=== PATIENT | male | born 1950 | race Caucasian/White ===

== ENCOUNTER 2019-09-20 07:13 | Day surgery (SDC) | payer MEDICARE, BC ==
[~2019-09-20 07:13] MED LIST: Lactated Ringers 1,000 ML IV SCH; Lidocaine 1% 6 ML ONE; Lidocaine 1%/Sod Bicarbonate in NS 8.4% 1 ML Syringe IDERM PRN; Propofol 200 MG/20 ML SDV ONE; Sodium Chloride 0.9% 10 ML Syringe FLUSH PRN; fentaNYL 100 MCG/2 ML SDV ONE
--- NOTE | 2019-09-20 07:49 | PCM.PREANE ---
Preanesthetic Assessment - Anesthesia/Transfusion/Family Hx Anesthesia History: Prior Anesthesia Without Reaction Family History of Anesthesia Reaction: No Transfusion History: No Prior Transfusion(s) Intubation History: Unknown - Review of Systems General: No Symptoms Pulmonary: No Symptoms (Former smoker: quit 4 years ago/ETOH: rarely) Cardiovascular: No Symptoms (Increased cholesterol, history of thoracic oulet syndrome) Gastrointestinal: No Symptoms (epigastic pain, History of GERD), Decreased Appetite Neurological: No Symptoms Other: Reports: Thyroid Problems (Hypothyroid), Sinus Problem (allergic rhinitis ), Depression, Anxiety - Physical Assessment NPO Status Date: 09/19/19 NPO Status Time: 18:00 Vital Signs: HR: 50 BP: 106/70 Resp: 16 Temp: 97.2F Sat: 98% Height: 1.78 m Weight: 79 kg ASA Class: 2 Mental Status: Alert & Oriented x3 Airway Class: Mallampati = 2 Dentition: Reports: Partial Thyro-Mental Finger Breadths: 3 Mouth Opening Finger Breadths: 3 ROM/Head Extension: Full Lungs: Clear to Auscultation, Normal Respiratory Effort Cardiovascular: Regular Rate, Regular Rhythm, No Murmurs - Lab Values: All labs reviewed and noted and within acceptable ranges to proceed with scheduled procedure. - Allergies Allergies/Adverse Reactions: Allergies Allergy/AdvReac Type Severity Reaction Status Date / Time No Known Allergies Allergy Verified 09/19/19 13:28 - Anesthesia Plan Pre-Op Medication Ordered: None - Acknowledgements Anesthesia Type Planned: MAC Pt an Appropriate Candidate for the Planned Anesthesia: Yes Alternatives and Risks of Anesthesia Discussed w Pt/Guardian: Yes Pt/Guardian Understands and Agrees with Anesthesia Plan: Yes PreAnesthesia Questionnaire HEENT History: Reports: Allergic Rhinitis, Other (See Below) Other HEENT History: HAS PARTIAL Cardiovascular History: Reports: High Cholesterol Respiratory History: Reports: None Gastrointestinal History: Reports: Other (See Below) 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 Musculoskeletal History: Reports: Arthritis Neurological History: Reports: Other (See Below) Other Neuro History: SEA SICKNESS Psychiatric History: Reports: Depression, PTSD Endocrine/Metabolic History: Reports: Hypothyroidism Hematologic History: Reports: Bleeding Disorder, Other (See Below) Other Hematologic History: THORACIC OUTLET SYNDROME, TAKES ASPIRIN 81MG DAILY Immunologic History: Reports: None Oncologic (Cancer) History: Reports: Prostate Dermatologic History: Reports: Other (See Below) Other Dermatologic History: DERMATITIS - Past Surgical History Head Surgeries/Procedures: Reports: None HEENT Surgical History: Reports: Tonsillectomy Cardiovascular Surgical History: Reports: None Respiratory Surgical History: Reports: None GI Surgical History: Reports: Appendectomy, Cholecystectomy Male Surgical History: Reports: TURP-Transurethral Resection of Prostate Endocrine Surgical History: Reports: None Neurological Surgical History: Reports: None Musculoskeletal Surgical History: Reports: None Oncologic Surgical History: Reports: None Dermatological Surgical History: Reports: None - SUBSTANCE USE Smoking Status *Q: Former Smoker Recreational Drug Use History: No - HOME MEDS Home Medications: Home Meds Ascorbic Acid [Vitamin C] 1,000 mg PO TID 09/19/19 [History] Aspirin [Low Dose Aspirin EC] 81 mg PO DAILY 09/19/19 [History] Cetirizine [ZyrTEC] 10 mg PO DAILY 09/19/19 [History] Clotrimazole/Betamethasone Dip [Lotrisone Cream] 1 dose TOP TID 09/19/19 [ History] FLUoxetine HCl [Prozac] 20 mg PO BID 09/19/19 [History] Fish Oil/[place]-3 Fatty Acids [Fish Oil 1,000 MG] 1 gm PO TID 09/19/19 [History] Levothyroxine [Synthroid] 50 mcg PO DAILY 09/19/19 [History] Multivitamin [Daily Multiple Vitamin] 1 tab PO DAILY 09/19/19 [History] Naproxen Sodium [Aleve] 220 mg PO DAILY PRN 09/19/19 [History] OLANZapine [Olanzapine] 5 mg PO BEDTIME 09/19/19 [History] Ranitidine [Zantac] 150 mg PO DAILY 09/19/19 [History] Rosuvastatin Calcium 10 mg PO DAILY 09/19/19 [History] Triamcinolone Acetonide [Nasacort AQ [place]] 1 dose NASBOTH DAILY PRN 09/19/19 [ History] - CURRENT (IN HOUSE) MEDS Current Meds: Current Medications Discontinued Medications Fentanyl (Sublimaze) Confirm Administered Dose 100 mcg .ROUTE .STK-MED ONE Stop: 09/20/19 07:03 Lidocaine HCl (Xylocaine-Mpf 1%) Confirm Administered Dose 6 mls @ as directed .ROUTE .STK-MED ONE Stop: 09/20/19 07:02 Propofol (Diprivan 20 Ml) Confirm Administered Dose 200 mg .ROUTE .[facility] ONE Stop: 09/20/19 07:02
[2019-09-20] MEDS ORDERED: Glycopyrrolate 0.2 MG/ML SDV ONE (08:42)
--- NOTE | 2019-09-20 09:01 | PCM48HPAN ---
Post Anesthesia Note - EVALUATION WITHIN 48HRS OF ANESTHETIC Vital Signs in Normal Range: Yes Patient Participated in Evaluation: Yes Respiratory Function Stable: Yes Airway Patent: Yes Cardiovascular Function Stable: Yes Hydration Status Stable: Yes Pain Control Satisfactory: Yes Nausea and Vomiting Control Satisfactory: Yes Mental Status Recovered: Yes Vital Signs: Last Vital Signs Temp 36.2 C 09/20/19 07:40 Pulse 51 L 09/20/19 08:30 Resp 16 09/20/19 08:30 BP 128/68 09/20/19 08:30 Pulse Ox 100 09/20/19 08:30
--- NOTE | 2019-09-20 09:24 | PCM.PRNOTE ---
- Free Text/Narrative Note: Date: 09/20/2019 Procedure: diagnostic esophagogastroduodenoscopy Endoscopist: Dc Salazar MD Findings: normal appearance of duodenum. Mild diffuse erythema of the antrum without ulceration or mass; biopsy obtained. The body of the stomach proximal to the incisura appeared grossly abnormal with trabeculated appearance, with several pocketed areas. Biopsy obtained. The mucosa appeared intact without ulceration. No discrete mass identified. Detailed report: The patient was placed in left lateral decubitus position and uunderwent MAC anesthesia. Once adequate sedation was achieved, timeout was performed and a bite block was placed. The endoscope was advanced through the mouth all the way to the second portion of the duodenum easily. No duodenal abnormality noted. Mild duodenal mucosal trauma from the scope was noted on withdrawal. The pylorus appeared normal. The antrum showed mild diffuse erythema and was biopsied. Proximal to the incisura, the stomach had a grossly abnormal appearance with what appeared to be an extensive network of healed ulcers and trabeculated cicatrix. A biopsy was obtained. No significant hiatal hernia noted , the cardia appeared normal. The esophagus was noted to have one area of benign isolated island of gastric mucosa and was otherwise normal without evidence of inflammation or Morfin esophagus. The scope was withdrawn completely. The patient tolerated the procedure well, no complications. Dc Salazar MD General Surgery
== END 2019-09-20 09:30 | disposition home or self-care (01) ==
LOC: JD.SDS 07:13
PROVIDERS: ATTEND Surgery
DX: K29.50 Unspecified chronic gastritis without bleeding (principal); M19.90 Unspecified osteoarthritis, unspecified site; E78.00 Pure hypercholesterolemia, unspecified; E03.9 Hypothyroidism, unspecified; J30.2 Other seasonal allergic rhinitis; F17.210 Nicotine dependence, cigarettes, uncomplicated; F32.9 Major depressive disorder, single episode, unspecified; Z79.82 Long term (current) use of aspirin; Z79.899 Other long term (current) drug therapy
CPT/HCPCS: 00731; J2001; J2704; J3010; J3490; J7120

== ENCOUNTER 2021-02-14 10:32 | Day surgery (SDC) | payer MEDICARE, BC ==
[~2021-02-14 10:32] MED LIST changes: -Lidocaine 1% 6 ML ONE; -Propofol 200 MG/20 ML SDV ONE; -fentaNYL 100 MCG/2 ML SDV ONE
[2021-02-14] MEDS ORDERED: Lidocaine 1% 4 ML ONE (11:28)
[2021-02-14] MEDS ORDERED: Propofol 200 MG/20 ML SDV ONE (11:28)
--- NOTE | 2021-02-14 12:05 | PCM.PREANE ---
Preanesthetic Assessment - Procedure Proposed Procedure: EGD - Anesthesia/Transfusion/Family Hx Anesthesia History: Prior Anesthesia Without Reaction Transfusion History: No Prior Transfusion(s) Intubation History: Unknown - Review of Systems General: No Symptoms Pulmonary: No Symptoms Cardiovascular: No Symptoms Gastrointestinal: No Symptoms Neurological: No Symptoms Other: Reports: None - Physical Assessment NPO Status Date: 02/13/21 NPO Status Time: 18:00 Vital Signs: 124/67 52 98% ASA Class: 2 Mental Status: Alert & Oriented x3 Airway Class: Mallampati = 2 Dentition: Reports: [place](s), Broken Tooth/Teeth, Missing Tooth/Teeth Thyro-Mental Finger Breadths: 3 Mouth Opening Finger Breadths: 3 ROM/Head Extension: Full Lungs: Clear to Auscultation, Normal Respiratory Effort Cardiovascular: Regular Rate, Regular Rhythm - Allergies Allergies/Adverse Reactions: Allergies Allergy/AdvReac Type Severity Reaction Status Date / Time No Known Allergies Allergy Verified 02/14/21 12:22 - Acknowledgements Anesthesia Type Planned: MAC Pt an Appropriate Candidate for the Planned Anesthesia: Yes Alternatives and Risks of Anesthesia Discussed w Pt/Guardian: Yes Pt/Guardian Understands and Agrees with Anesthesia Plan: Yes PreAnesthesia Questionnaire HEENT History: Reports: Allergic Rhinitis, Other (See Below) Other HEENT History: HAS PARTIAL Cardiovascular History: Reports: High Cholesterol Respiratory History: Reports: None Gastrointestinal History: Reports: GERD, Helicobacter Pylori, PUD, Other (See Below) Other Gastrointestinal History: EPIGASTRIC PAIN, hepatitis B Genitourinary History: Reports: 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 Musculoskeletal History: Reports: Arthritis Neurological History: Reports: Other (See Below) Other Neuro History: thoracic outlet syndrome, seasickness Psychiatric History: Reports: Depression, PTSD, Other (See Below) Other Psychiatric History: nightmares Endocrine/Metabolic History: Reports: Hypothyroidism Hematologic History: Reports: Bleeding Disorder, Other (See Below) Other Hematologic History: thoracic outlet syndrome, bleeding disorder, blood clotting disorder Immunologic History: Reports: None Oncologic (Cancer) History: Reports: Prostate Dermatologic History: Reports: Other (See Below) Other Dermatologic History: alopecia areata, dermatitis - Infectious Disease History Infectious Disease History: Reports: None - Past Surgical History Head Surgeries/Procedures: Reports: None HEENT Surgical History: Reports: Tonsillectomy Cardiovascular Surgical History: Reports: None Respiratory Surgical History: Reports: None GI Surgical History: Reports: Appendectomy, Cholecystectomy Male Surgical History: Reports: Prostate Biopsy, TURP-Transurethral Resection of Prostate Endocrine Surgical History: Reports: None Neurological Surgical History: Reports: None Musculoskeletal Surgical History: Reports: None Oncologic Surgical History: Reports: None Dermatological Surgical History: Reports: None - SUBSTANCE USE Tobacco Use Status *Q: Former Tobacco User Recreational Drug Use History: No - HOME MEDS Home Medications: Home Meds Ascorbic Acid [Vitamin C] 1,000 mg PO TID 09/19/19 [History] Aspirin [Low Dose Aspirin EC] 81 mg PO DAILY 09/19/19 [History] Cetirizine [ZyrTEC] 10 mg PO DAILY 09/19/19 [History] FLUoxetine HCl [Prozac] 20 mg PO BID 09/19/19 [History] Fish Oil/[place]-3 Fatty Acids [Fish Oil 1,000 MG] 1 gm PO TID 09/19/19 [History] Levothyroxine [Synthroid] 50 mcg PO DAILY 09/19/19 [History] Multivitamin [Daily Multiple Vitamin] 1 tab PO DAILY 09/19/19 [History] OLANZapine [Olanzapine] 5 mg PO BEDTIME 09/19/19 [History] Rosuvastatin Calcium 10 mg PO DAILY 09/19/19 [History] Triamcinolone Acetonide [Nasacort AQ [place]] 1 dose NASBOTH DAILY PRN 09/19/19 [History] Omeprazole Magnesium [Prilosec Otc] 20 mg PO DAILY 02/13/21 [History] - CURRENT (IN HOUSE) MEDS Current Meds: Current Medications Lactated Ringer's (Ringers, Lactated) 1,000 mls @ 125 mls/hr IV ASDIRECTED FLO Stop: 02/14/21 23:00 Lidocaine/Sodium Bicarbonate (Lidocaine 1%/Sod Bicarbonate In Ns 8.4% 1 Ml Syringe) 0.25 ml IDERM ONETIME PRN PRN Reason: Prior to IV Start Stop: 02/14/21 18:00 Sodium Chloride (Sodium Chloride 0.9% 10 Ml Syringe) 10 ml FLUSH ASDIRECTED PRN PRN Reason: Keep Vein Open Stop: 02/14/21 18:00 Discontinued Medications Lidocaine HCl (Xylocaine-Mpf 1%) Confirm Administered Dose 4 mls @ as directed .ROUTE .STK-MED ONE Stop: 02/14/21 11:29 Propofol (Propofol 200 Mg/20 Ml Sdv) Confirm Administered Dose 400 mg .ROUTE .STK-MED ONE Stop: 02/14/21 11:29
--- NOTE | 2021-02-14 12:27 | PCM.PRNOTE ---
- Free Text/Narrative Note: Date: 02/14/2021 Procedure: diagnostic esophagogastroduodenoscopy Endoscopist: Dc Salazar MD History: epigastric pain, with findings of severe gastropathy and H pylori one year ago. He initial improved but now has recurrent pain despite regular PPI use Findings: gastritis with abnormal appearing mucosa, though better than on previous scope. Small hiatal hernia. Detailed Report: The patient was taken to the endoscopy suite and placed in left lateral decubitus position. A bite-block was placed, monitored anesthesia care was initiated and timeout was performed. The endoscope was inserted into the mouth and advanced to the duodenum with ease. Duodenal mucosa appeared normal with gregg yellow bile contents. The stomach appeared abnormal, although in my opinion appeared better than it did 1 year ago. The area was not mag type pattern appearance to the antral mucosa. A biopsy was obtained with cold forceps. In the proximal half of the stomach, there was the same abnormal trabeculated appearance to the mucosa with what appeared like cratering or healed ulceration. Interspersed with this tissue was polypoid glandular tissue that appeared most consistent with fundic gland hyperplasia. Several biopsies were obtained with cold forceps of this abnormal appearing tissue. On retrofl exion of the scope, there was a small sliding hiatal hernia with minor inflammatory change of the gastric side of the GE junction. Withdrawal of the scope into the distal esophagus revealed no evidence of gross metaplasia or esophagitis. A sample biopsy of distal esophagus was obtained with cold forceps. Air was suctioned from the stomach prior to withdrawal of the scope. The esophagus appeared normal in caliber, and a small gastric inlet patch was identified in the midportion of the esophagus. The vocal cords were visualized and appeared normal. The patient tolerated the procedure well.
--- NOTE | 2021-02-14 12:27 | PCM48HPAN ---
Post Anesthesia Note - EVALUATION WITHIN 48HRS OF ANESTHETIC Vital Signs in Normal Range: Yes Patient Participated in Evaluation: Yes Respiratory Function Stable: Yes Airway Patent: Yes Cardiovascular Function Stable: Yes Hydration Status Stable: Yes Pain Control Satisfactory: Yes Nausea and Vomiting Control Satisfactory: Yes Mental Status Recovered: Yes Vital Signs: Last Vital Signs Temp 97.0 F 02/14/21 10:45 Pulse 52 L 02/14/21 10:45 Resp 16 02/14/21 10:45 BP 124/67 02/14/21 10:45 Pulse Ox 99 02/14/21 10:45 1219 124/78 97% 48 14 97.2
[2021-02-14] MEDS ORDERED: Iopamidol 612 MG/ML 100 ML Bottle IVPUSH ONE (13:08)
[2021-02-14] MEDS ORDERED: Diatrizoate Meglumine/Diatrizoate Sodium 37% 120 ML Bottle PO ONE (13:08)
[2021-02-14] MEDS ORDERED: Sodium Chloride 0.9% 10 ML Syringe FLUSH PRN (13:08)
--- NOTE | 2021-02-15 08:39 | CT ---
CT abdomen Technique: Multiple axial sections were obtained from above the dome of the diaphragm inferiorly to slightly below the top of the iliac crest. Intravenous and oral contrast was utilized. Reconstructed coronal and sagittal images were also obtained. Comparison: No prior CT abdomen pelvis is available, previous plain film abdominal study of 04/21/13 is available. Findings: Visualized lung bases show nothing acute. Slight pectus excavatum deformity is partially seen. No contrast is seen within the distal esophagus. No hiatal hernia is seen. Small low density finding is noted within the left lobe of the liver which on the coronal image measures 1.1 cm. Liver shows no other focal abnormality. Spleen appears at the upper limits of normal. Kidneys show symmetric contrast enhancement. Small cyst is noted within the upper left kidney measuring approximately 8 mm. Cyst is noted within the right kidney measuring about 9 mm. No additional abnormality is appreciated within the kidneys. No ureteral dilatation is appreciated. Pancreas shows no discrete abnormality. Gallbladder contains no calcified gallstones. Abdominal aorta shows atherosclerotic change without aneurysm. No mesenteric abnormalities are seen. There is bowel wall thickening seen within the visualized terminal ileum which exits into the cecum. Bone window settings were reviewed which show diffuse degenerative change within the spine. Impression: 1. Bowel wall thickening within the terminal ileum which exits into the cecum. This could represent Crohn's disease as well as other forms of enteritis. 2. Small low density finding within the left lobe of the liver measuring 1.1 cm which appears solid. Liver is otherwise unremarkable. Given that this is the only abnormality within the liver this is most likely incidental. 3. Other nonacute findings as noted above. Diagnostic code #3
== END 2021-02-14 13:00 | disposition home or self-care (01) ==
LOC: JD.SDS 10:32
PROVIDERS: ATTEND Surgery
DX: K29.50 Unspecified chronic gastritis without bleeding (principal); K31.89 Other diseases of stomach and duodenum; K44.9 Diaphragmatic hernia without obstruction or gangrene; K21.9 Gastro-esophageal reflux disease without esophagitis; E78.00 Pure hypercholesterolemia, unspecified; E03.9 Hypothyroidism, unspecified; E78.5 Hyperlipidemia, unspecified; Z85.46 Personal history of malignant neoplasm of prostate; Z79.82 Long term (current) use of aspirin; Z79.890 Hormone replacement therapy; Z79.899 Other long term (current) drug therapy; Z87.11 Personal history of peptic ulcer disease; Z98.890 Other specified postprocedural states
CPT/HCPCS: 43239; 74160; J2704; J7120; Q9967; 00731; 88305; 88342; 99100

== ENCOUNTER → 2021-03-05 | Day surgery (SDC) | payer MEDICARE, BC ==
[~2021-03-05] MED LIST changes: +Glycopyrrolate 0.2 MG/ML SDV ONE; +Propofol 200 MG/20 ML SDV ONE
--- NOTE | 2021-03-05 07:13 | PCM.PREANE ---
Preanesthetic Assessment - Anesthesia/Transfusion/Family Hx Anesthesia History: Prior Anesthesia Without Reaction Family History of Anesthesia Reaction: No Transfusion History: No Prior Transfusion(s) Intubation History: Unknown - Review of Systems General: No Symptoms Pulmonary: No Symptoms Cardiovascular: No Symptoms Gastrointestinal: No Symptoms, Abdominal Pain, Other (hx of peptic ulcer disease, GERD) Neurological: No Symptoms Other: Reports: None, Depression - Physical Assessment NPO Status Date: 03/05/21 NPO Status Time: 02:30 Weight: 75.3 kg ASA Class: 2 Mental Status: Alert & Oriented x3 Airway Class: Mallampati = 2 Dentition: Reports: Normal Dentition Thyro-Mental Finger Breadths: 3 Mouth Opening Finger Breadths: 3 ROM/Head Extension: Full Lungs: Clear to Auscultation, Normal Respiratory Effort Cardiovascular: Regular Rate, Regular Rhythm - Allergies Allergies/Adverse Reactions: Allergies Allergy/AdvReac Type Severity Reaction Status Date / Time No Known Allergies Allergy Verified 03/04/21 16:26 - Blood Blood Available: No Product(s) Available: None - Anesthesia Plan Pre-Op Medication Ordered: None - Acknowledgements Anesthesia Type Planned: MAC Pt an Appropriate Candidate for the Planned Anesthesia: Yes Alternatives and Risks of Anesthesia Discussed w Pt/Guardian: Yes Pt/Guardian Understands and Agrees with Anesthesia Plan: Yes PreAnesthesia Questionnaire HEENT History: Reports: Allergic Rhinitis, Other (See Below) Other HEENT History: HAS PARTIAL Cardiovascular History: Reports: High Cholesterol Respiratory History: Reports: None Gastrointestinal History: Reports: GERD, Helicobacter Pylori, PUD, Other (See Below) Other Gastrointestinal History: EPIGASTRIC PAIN, hepatitis B Genitourinary History: Reports: Renal Calculus [employer]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 Musculoskeletal History: Reports: Arthritis Neurological History: Reports: Other (See Below) Other Neuro History: thoracic outlet syndrome, seasickness Psychiatric History: Reports: Depression, PTSD, Other (See Below) Other Psychiatric History: nightmares Endocrine/Metabolic History: Reports: Hypothyroidism Hematologic History: Reports: Bleeding Disorder, Other (See Below) Other Hematologic History: thoracic outlet syndrome, bleeding disorder, blood clotting disorder Immunologic History: Reports: None Oncologic (Cancer) History: Reports: Prostate Dermatologic History: Reports: Other (See Below) Other Dermatologic History: alopecia areata, dermatitis - Infectious Disease History Infectious Disease History: Reports: None - Past Surgical History Head Surgeries/Procedures: Reports: None HEENT Surgical History: Reports: Tonsillectomy Cardiovascular Surgical History: Reports: None Respiratory Surgical History: Reports: None GI Surgical History: Reports: Appendectomy, Cholecystectomy Male Surgical History: Reports: Prostate Biopsy, TURP-Transurethral Resection of Prostate Endocrine Surgical History: Reports: None Neurological Surgical History: Reports: None Musculoskeletal Surgical History: Reports: None Oncologic Surgical History: Reports: None Dermatological Surgical History: Reports: None - SUBSTANCE USE Tobacco Use Status *Q: Current Every Day Tobacco User Recreational Drug Use History: No - HOME MEDS Home Medications: Home Meds Ascorbic Acid [Vitamin C] 1,000 mg PO TID 09/19/19 [History] Aspirin [Low Dose Aspirin EC] 81 mg PO DAILY 09/19/19 [History] Cetirizine [ZyrTEC] 10 mg PO DAILY 09/19/19 [History] FLUoxetine HCl [Prozac] 20 mg PO BID 09/19/19 [History] Fish Oil/[place]-3 Fatty Acids [Fish Oil 1,000 MG] 1 gm PO TID 09/19/19 [History] Levothyroxine [Synthroid] 50 mcg PO DAILY 09/19/19 [History] Multivitamin [Daily Multiple Vitamin] 1 tab PO DAILY 09/19/19 [History] OLANZapine [Olanzapine] 5 mg PO BEDTIME 09/19/19 [History] Rosuvastatin Calcium 10 mg PO DAILY 09/19/19 [History] Triamcinolone Acetonide [Nasacort AQ [place]] 1 dose NASBOTH DAILY PRN 09/19/19 [History] Omeprazole Magnesium [Prilosec Otc] 20 mg PO DAILY 02/13/21 [History] - CURRENT (IN HOUSE) MEDS Current Meds: Current Medications Lactated Ringer's (Ringers, Lactated) 1,000 mls @ 125 mls/hr IV ASDIRECTED FLO Stop: 03/05/21 23:00 Lidocaine/Sodium Bicarbonate (Lidocaine 1%/Sod Bicarbonate In Ns 8.4% 1 Ml Syringe) 0.25 ml IDERM ONETIME PRN PRN Reason: Prior to IV Start Stop: 03/05/21 18:00 Sodium Chloride (Sodium Chloride 0.9% 10 Ml Syringe) 10 ml FLUSH ASDIRECTED PRN PRN Reason: Keep Vein Open Stop: 03/05/21 18:00
--- NOTE | 2021-03-05 08:26 | PCM48HPAN ---
Post Anesthesia Note - EVALUATION WITHIN 48HRS OF ANESTHETIC Vital Signs in Normal Range: Yes Patient Participated in Evaluation: Yes Respiratory Function Stable: Yes Airway Patent: Yes Cardiovascular Function Stable: Yes Hydration Status Stable: Yes Pain Control Satisfactory: Yes Nausea and Vomiting Control Satisfactory: Yes Mental Status Recovered: Yes Vital Signs: Last Vital Signs Temp 36.4 C 03/05/21 07:10 Pulse 60 03/05/21 07:10 Resp 16 03/05/21 07:10 BP 125/77 03/05/21 07:10 Pulse Ox 96 03/05/21 07:10
--- NOTE | 2021-03-05 08:29 | PCM.PRNOTE ---
- Free Text/Narrative Note: Date: 03/05/2021 Procedure: diagnostic colonoscopy History: chronic abdominal pain with recent finding of terminal ileitis on CT and elevated CRP Endoscopist: Dc Salazar MD Findings: small cecal polyp. Terminal ileum intubated with inflamed mucosa noted. Detailed Report: The patient was taken to the endoscopy suite and placed in left lateral decubitus position. Timeout was performed and monitored anesthesia care was initiated. Visual inspection of the anus revealed no gross abnormality. Digital rectal exam was significant for boggy prostate but was otherwise unremarkable. The colonoscope was inserted and advanced all the way to the cecum. The appendiceal orifice was visualized. The terminal ileum was intubated. The mucosa of the terminal ileum was acutely inflamed. A few biopsies were obtained with cold forceps for diagnostics. A small sessile polyp was noted near the appendiceal orifice which was removed in piecemeal fashion using cold forceps. The scope was slowly withdrawn and mucosal surfaces were inspected. The prep was fair. No large or worrisome lesions were noted on withdrawal of the scope, although less time was spent than usual looking for small polyps given that the patient had a screening colonoscopy just a few years ago. Air was suctioned from the rectum prior to withdrawal of the scope. The patient tolerated the procedure well.
== END | disposition home or self-care (01) ==
LOC: JD.SDS 06:44
PROVIDERS: ATTEND Surgery
DX: D12.0 Benign neoplasm of cecum (principal); K50.00 Crohn's disease of small intestine without complications; K21.9 Gastro-esophageal reflux disease without esophagitis; E78.00 Pure hypercholesterolemia, unspecified; E78.5 Hyperlipidemia, unspecified; E03.9 Hypothyroidism, unspecified; F17.210 Nicotine dependence, cigarettes, uncomplicated; Z85.46 Personal history of malignant neoplasm of prostate; Z87.11 Personal history of peptic ulcer disease; Z79.82 Long term (current) use of aspirin; Z79.890 Hormone replacement therapy; Z79.899 Other long term (current) drug therapy
CPT/HCPCS: 45380; J2704; J3490; J7120; 00811

== ENCOUNTER 2021-03-06 16:51 | Inpatient (IN) | payer MEDICARE, BC ==
[2021-03-06] MEDS ORDERED: HYDROmorphone 1 MG/ML Syringe IVPUSH STA (17:10)
[2021-03-06] MEDS ORDERED: Ondansetron 4 MG/2 ML SDV IVPUSH ONE (17:10)
[2021-03-06] MEDS ORDERED: Sodium Chloride 0.9% 1,000 ML IV SCH (17:15)
--- NOTE | 2021-03-06 17:28 | EDM.PDOC ---
ED HPI GENERAL MEDICAL PROBLEM - General Chief Complaint: Abdominal Pain Stated Complaint: PAIN AFTER COLONOSCOPY YESTERDAY Time Seen by Provider: 03/06/21 17:04 Source of Information: Reports: Patient, Family (), RN Notes Reviewed History Limitations: Reports: No Limitations - History of Present Illness INITIAL COMMENTS - FREE TEXT/NARRATIVE: Patient is a 70-year-old male who presents to the ED for evaluation of abdominal pain status post colonoscopy done by Dr. Salazar yesterday. He did have biopsies taken as well. He was told by Dr. Salazar if he developed any sort of abdomen pain, he was to present to the ER, and then he would like to be notified. Patient notes that he had pain that started developing this morning, he points to his bellybutton at the source of the pain. He did not take anything for the pain management. Notes that the pain does not seem to really radiate anywhere. He notes that the pain just gets worse, then he is better at time. He states there are no specific aggravating or alleviating factors. He has had no fever, but notes that he had some chills, he has had nausea but no vomiting, he has had no diarrhea, he does not think he has had any flatulence, or bowel movement. Did not further denies any cough or shortness of breath. Middle Abdomen Pain Score (Numeric/FACES): 8 - Related Data Allergies Allergy/AdvReac Type Severity Reaction Status Date / Time No Known Allergies Allergy Verified 03/06/21 17:08 Home Meds: Home Meds Ascorbic Acid [Vitamin C] 1,000 mg PO TID 09/19/19 [History] Aspirin [Low Dose Aspirin EC] 81 mg PO DAILY 09/19/19 [History] Cetirizine [ZyrTEC] 10 mg PO DAILY 09/19/19 [History] FLUoxetine HCl [Prozac] 20 mg PO BID 09/19/19 [History] Fish Oil/[place]-3 Fatty Acids [Fish Oil 1,000 MG] 1 gm PO TID 09/19/19 [History] Levothyroxine [Synthroid] 50 mcg PO DAILY 09/19/19 [History] Multivitamin [Daily Multiple Vitamin] 1 tab PO DAILY 09/19/19 [History] OLANZapine [Olanzapine] 5 mg PO BEDTIME 09/19/19 [History] Rosuvastatin Calcium 10 mg PO DAILY 09/19/19 [History] Triamcinolone Acetonide [Nasacort AQ [place]] 1 dose NASBOTH DAILY PRN 09/19/19 [History] Past Medical History HEENT History: Reports: Allergic Rhinitis, Other (See Below) Other HEENT History: HAS PARTIAL Cardiovascular History: Reports: High Cholesterol Respiratory History: Reports: None Gastrointestinal History: Reports: GERD, Helicobacter Pylori, PUD, Other (See Below) Other Gastrointestinal History: EPIGASTRIC PAIN, hepatitis B Genitourinary History: Reports: Renal Calculus [employer]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 Musculoskeletal History: Reports: Arthritis Neurological History: Reports: Other (See Below) Other Neuro History: thoracic outlet syndrome, seasickness Psychiatric History: Reports: Depression, PTSD, Other (See Below) Other Psychiatric History: nightmares Endocrine/Metabolic History: Reports: Hypothyroidism Hematologic History: Reports: Bleeding Disorder, Other (See Below) Other Hematologic History: thoracic outlet syndrome, bleeding disorder, blood clotting disorder Immunologic History: Reports: None Oncologic (Cancer) History: Reports: Prostate Dermatologic History: Reports: Other (See Below) Other Dermatologic History: alopecia areata, dermatitis - Infectious Disease History Infectious Disease History: Reports: None - Past Surgical History Head Surgeries/Procedures: Reports: None HEENT Surgical History: Reports: Tonsillectomy Cardiovascular Surgical History: Reports: None Respiratory Surgical History: Reports: None GI Surgical History: Reports: Appendectomy, Cholecystectomy Male Surgical History: Reports: Prostate Biopsy, TURP-Transurethral Resection of Prostate Endocrine Surgical History: Reports: None Neurological Surgical History: Reports: None Musculoskeletal Surgical History: Reports: None Oncologic Surgical History: Reports: None Dermatological Surgical History: Reports: None Social & Family History - Caffeine Use Caffeine Use: Reports: Coffee ED ROS GENERAL - Review of Systems Review Of Systems: Comprehensive ROS is negative, except as noted in HPI. ED EXAM, GI/ABD - Physical Exam Exam: See Below Exam Limited By: No Limitations General Appearance: Alert, WD/WN, No Apparent Distress Respiratory/Chest: No Respiratory Distress, Lungs Clear, Normal Breath Sounds, No Accessory Muscle Use, Chest Non-Tender Cardiovascular: Normal Peripheral Pulses, Regular Rate, Rhythm, No Edema GI/Abdominal Exam: Soft, No Distention, No Mass, Tender (periumbilical tenderness.), Abnormal Bowel Sounds (hypoactive) Extremities: Normal Inspection, Normal Capillary Refill Neurological: Alert, Oriented, Normal Cognition, No Motor/Sensory Deficits Psychiatric: Normal Affect, Normal Mood Skin Exam: Warm, Dry, Intact, Normal Color, No Rash Course - Vital Signs Last Recorded V/S: Last Vital Signs Temp 98.7 F 03/06/21 17:01 Pulse 74 03/06/21 17:01 Resp 20 03/06/21 17:01 BP 146/88 H 03/06/21 17:01 Pulse Ox 100 03/06/21 17:01 - Orders/Labs/Meds Orders: Active Orders 24 hr Category Date Time Status UA W/MICROSCOPIC [URIN] Stat Lab 03/06/21 17:10 Ordered Sodium Chloride 0.9% [Normal Saline] 1,000 ml Med 03/06/21 17:15 Active IV ASDIRECTED Sodium Chloride 0.9% [Saline Flush] Med 03/06/21 18:15 Active 10 ml FLUSH ASDIRECTED Medication Orders Sodium Chloride (Normal Saline) 1,000 mls @ 999 mls/hr IV ASDIRECTED FLO Last Admin: 03/06/21 17:31 Dose: 999 mls/hr Documented by: HERMMIC Sodium Chloride (Sodium Chloride 0.9% 10 Ml Syringe) 10 ml FLUSH ASDIRECTED FLO Last Admin: 03/06/21 18:46 Dose: 10 ml Documented by: ELIZABET Labs: Laboratory Tests 03/06/21 03/06/21 Range/Units 17:23 17:23 WBC 12.39 H (4.23-9.07) K/mm3 RBC 5.15 (4.63-6.08) M/mm3 Hgb 15.4 (13.7-17.5) gm/dl Hct 44.8 (40.1-51.0) % MCV 87.0 (79.0-92.2) fl MCH 29.9 (25.7-32.2) pg MCHC 34.4 (32.2-35.5) g/dl RDW Std Deviation 40.7 (35.1-43.9) fL Plt Count 292 (163-337) K/mm3 MPV 9.2 L (9.4-12.3) fl Neutrophils % (Manual) 78 H (40-60) % Band Neutrophils % 1 (0-10) % Lymphocytes % (Manual) 16 L (20-40) % Atypical Lymphs % 0 % Monocytes % (Manual) 5 (2-10) % Eosinophils % (Manual) 0 L (0.8-7.0) % Basophils % (Manual) 0 L (0.2-1.2) Platelet Estimate Adequate RBC Morph Comment Normal Sodium 139 (136-145) mEq/L Potassium 3.9 (3.5-5.1) mEq/L Chloride 101 (98-107) mEq/L Carbon Dioxide 28 (21-32) mEq/L Anion Gap 13.9 (5-15) BUN 10 (7-18) mg/dL Creatinine 1.0 (0.7-1.3) mg/dL Est Cr Clr Drug Dosing 68.94 mL/min Estimated GFR (MDRD) > 60 (>60) mL/min BUN/Creatinine Ratio 10.0 L (14-18) Glucose 132 H (83-115) mg/dL Calcium 9.0 (8.5-10.1) mg/dL Total Bilirubin 1.0 (0.2-1.0) mg/dL AST 18 (15-37) U/L ALT 27 (16-63) U/L Alkaline Phosphatase 134 H (46-116) U/L C-Reactive Protein 3.5 H* (<1.0) mg/dL Total Protein 7.2 (6.4-8.2) g/dl Albumin 3.1 L (3.4-5.0) g/dl Globulin 4.1 gm/dL Albumin/Globulin Ratio 0.8 L (1-2) Lipase 66 L (73-393) U/L Meds: Medications Generic Name Dose Route Start Last Admin Trade Name Julian PRN Reason Stop Dose Admin Sodium Chloride 1,000 mls @ 999 mls/hr 03/06/21 17:15 03/06/21 17:31 Normal Saline IV 999 mls/hr ASDIRECTED FLO Administration Sodium Chloride 10 ml 03/06/21 18:15 03/06/21 18:46 Sodium Chloride 0.9% 10 Ml Syringe FLUSH 10 ml ASDIRECTED FLO Administration Discontinued Medications Generic Name Dose Route Start Last Admin Trade Name Tobinq PRN Reason Stop Dose Admin Hydromorphone HCl 1 mg 03/06/21 17:10 03/06/21 17:30 Hydromorphone 1 Mg/Ml Syringe IVPUSH 03/06/21 17:11 1 mg ONETIME STA Administration Iopamidol 50 ml 03/06/21 18:14 03/06/21 18:46 Iopamidol 612 Mg/Ml 50 Ml Sdv IVPUSH 03/06/21 18:15 50 ml ONETIME ONE Administration Iopamidol 100 ml 03/06/21 18:14 03/06/21 18:46 Iopamidol 612 Mg/Ml 100 Ml Bottle IVPUSH 03/06/21 18:15 100 ml ONETIME ONE Administration Ondansetron HCl 4 mg 03/06/21 17:10 03/06/21 17:30 Ondansetron 4 Mg/2 Ml Sdv IVPUSH 03/06/21 17:11 4 mg ONETIME ONE Administration - Re-Assessments/Exams Free Text/Narrative Re-Assessment/Exam: 03/06/21 17:28 Patient presents to the ER for his abdomen pain status post colonoscopy. Dr. Salazar was made notified directly after the patient's triage was performed. He does request an abdomen pelvis CT be done with IV contrast if possible, and repeat some basic labs. Orders have been placed for this we will give him something for pain, nausea, and give him some IV fluids as well. Patient verbalized understanding of this plan. 03/06/21 19:03 Patient's laboratory evaluation has returned, he has a slightly elevated white count of 12, slightly elevated CRP at 3.4, and metabolic panel essentially unremarkable. Dr. Salazar has been made aware of the labs, and did review the CT, Dr. Gandara did note that there is some slight dilatation of the small bowel, likely residual from the colonoscopy however there is no free air in the abdomen. Dr. Salazar is going to admit the patient for his illness. Departure - Departure Time of Disposition: 19:04 Disposition: Home, Self-Care 01 Condition: Good Clinical Impression: Status post colonoscopy Abdominal pain Qualifiers: Abdominal location: periumbilical Qualified Code(s): R10.33 - Periumbilical pain - Discharge Information *PRESCRIPTION DRUG MONITORING PROGRAM REVIEWED*: No *COPY OF PRESCRIPTION DRUG MONITORING REPORT IN PATIENT GABY: No Referrals: Corrie Griggs, IT SECURITY CONSULTANT [Primary Care Provider] - Forms: ED Department Discharge Sepsis Event Note (ED) - Evaluation Sepsis Screening Result: No Definite Risk - Focused Exam Vital Signs: Vital Signs Temp Pulse Resp BP Pulse Ox 03/06/21 17:01 98.7 F 74 20 146/88 H 100 - My Orders Last 24 Hours: My Active Orders 03/06/21 17:10 UA W/MICROSCOPIC [URIN] Stat 03/06/21 17:15 Sodium Chloride 0.9% [Normal Saline] 1,000 ml IV ASDIRECTED 03/06/21 18:15 Sodium Chloride 0.9% [Saline Flush] 10 ml FLUSH ASDIRECTED - Assessment/Plan Last 24 Hours: My Active Orders 03/06/21 17:10 UA W/MICROSCOPIC [URIN] Stat 03/06/21 17:15 Sodium Chloride 0.9% [Normal Saline] 1,000 ml IV ASDIRECTED 03/06/21 18:15 Sodium Chloride 0.9% [Saline Flush] 10 ml FLUSH ASDIRECTED
[2021-03-06] MEDS ORDERED: Iopamidol 612 MG/ML 50 ML SDV IVPUSH ONE (18:14)
[2021-03-06] MEDS ORDERED: Iopamidol 612 MG/ML 100 ML Bottle IVPUSH ONE (18:14)
[2021-03-06] MEDS ORDERED: Sodium Chloride 0.9% 10 ML Syringe FLUSH SCH (18:15)
--- NOTE | 2021-03-06 19:01 | CT ---
CT abdomen and pelvis Technique: Multiple axial sections were obtained from above the dome of the diaphragm inferiorly through the pubic symphysis. Intravenous contrast was utilized. No oral contrast has been given. Delayed images were also obtained. Reconstructed coronal and sagittal images were obtained. Comparison: Prior CT abdomen and pelvis study of 02/26/21. Findings: Visualized lung bases show nothing acute. Small abnormality noted previously within the left lobe of the liver is not as well seen on this study but appears to be stable. Liver is otherwise unremarkable. Spleen is within normal limits. Adrenal glands show no nodule. Pancreas is within normal limits. Gallbladder contains no calcified gallstones. Kidneys show symmetric contrast enhancement. Right kidney shows a small cyst measuring about 1.0 cm. Abdominal aorta shows atherosclerotic change without aneurysm. No retroperitoneal adenopathy or mesenteric abnormalities are seen. There is gas and a prominent amount of fluid within the small bowel. Small bowel also appears dilated presumably from prior colonoscopy. There is no free fluid being seen. Surgical clips are seen within the pelvis. Delayed images show contrast being excreted from both kidneys into the ureters and bladder. Bone window settings were reviewed which show degenerative change within the spine with disc space narrowing, posterior spurring and anterior osteophytes. Impression: 1. Prominent amount of air and fluid within the small bowel. Small bowel is also dilated. Findings most likely are residual from prior colonoscopy with probable small bowel ileus. 2. No free air is seen. No air within the bowel is noted. 3. Other findings as described above which are stable from previous study. Diagnostic code #3
[2021-03-06] MEDS ORDERED: Morphine 2 MG/ML SYRINGE IVPUSH PRN (19:08)
[2021-03-06] MEDS ORDERED: Lactated Ringers 1,000 ML IV SCH (19:15)
--- NOTE | 2021-03-06 19:17 | PCM.HP.2 ---
H&P History of Present Illness - General Date of Service: 03/06/21 Admit Problem/Dx: Admission Diagnosis/Problem Admission Diagnosis/Problem Ileitis Source of Information: Patient History Limitations: Reports: No Limitations - History of Present Illness Initial Comments - Free Text/Narative: Mr. Alvarez is a 70 yo man with chronic abdominal pain who recently has been undergoing workup for suspected Crohn ileitis. He had a colonoscopy with ileal biopsy yesterday and presents with worsening pain. CT shows no evidence of free air, fluid or abscess, but persistent inflammatory change and dilation of small bowel. Middle Abdomen Pain Score (Numeric/FACES): 8 - Related Data Allergies/Adverse Reactions: Allergies Allergy/AdvReac Type Severity Reaction Status Date / Time No Known Allergies Allergy Verified 03/06/21 17:08 Home Medications: Home Meds Ascorbic Acid [Vitamin C] 1,000 mg PO TID 09/19/19 [History] Aspirin [Low Dose Aspirin EC] 81 mg PO DAILY 09/19/19 [History] Cetirizine [ZyrTEC] 10 mg PO DAILY 09/19/19 [History] FLUoxetine HCl [Prozac] 20 mg PO BID 09/19/19 [History] Fish Oil/[place]-3 Fatty Acids [Fish Oil 1,000 MG] 1 gm PO TID 09/19/19 [History] Levothyroxine [Synthroid] 50 mcg PO DAILY 09/19/19 [History] Multivitamin [Daily Multiple Vitamin] 1 tab PO DAILY 09/19/19 [History] OLANZapine [Olanzapine] 5 mg PO BEDTIME 09/19/19 [History] Rosuvastatin Calcium 10 mg PO DAILY 09/19/19 [History] Triamcinolone Acetonide [Nasacort AQ [place]] 1 dose NASBOTH DAILY PRN 09/19/19 [History] Past Medical History HEENT History: Reports: Allergic Rhinitis, Other (See Below) Other HEENT History: HAS PARTIAL Cardiovascular History: Reports: High Cholesterol Respiratory History: Reports: None Gastrointestinal History: Reports: GERD, Helicobacter Pylori, PUD, Other (See Below) Other Gastrointestinal History: EPIGASTRIC PAIN, hepatitis B Genitourinary History: Reports: Renal 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 Musculoskeletal History: Reports: Arthritis Neurological History: Reports: Other (See Below) Other Neuro History: thoracic outlet syndrome, seasickness Psychiatric History: Reports: Depression, PTSD, Other (See Below) Other Psychiatric History: nightmares Endocrine/Metabolic History: Reports: Hypothyroidism Hematologic History: Reports: Bleeding Disorder, Other (See Below) Other Hematologic History: thoracic outlet syndrome, bleeding disorder, blood clotting disorder Immunologic History: Reports: None Oncologic (Cancer) History: Reports: Prostate Dermatologic History: Reports: Other (See Below) Other Dermatologic History: alopecia areata, dermatitis - Infectious Disease History Infectious Disease History: Reports: Chicken Pox, Measles, Mumps - Past Surgical History Head Surgeries/Procedures: Reports: None HEENT Surgical History: Reports: Tonsillectomy Cardiovascular Surgical History: Reports: None Respiratory Surgical History: Reports: None GI Surgical History: Reports: Appendectomy, Cholecystectomy, Colonoscopy Male Surgical History: Reports: Prostate Biopsy, TURP-Transurethral Resection of Prostate Endocrine Surgical History: Reports: None Neurological Surgical History: Reports: None Musculoskeletal Surgical History: Reports: None Oncologic Surgical History: Reports: None Dermatological Surgical History: Reports: None Social & Family History - Family History Family Medical History: No Pertinent Family History - Tobacco Use Tobacco Use Status *Q: Former Tobacco User Used Tobacco, but Quit: Yes Month/Year Tobacco Last Used: 04/2009 - Caffeine Use Caffeine Use: Reports: Coffee - Recreational Drug Use Recreational Drug Use: No H&P Review of Systems - Review of Systems: Review Of Systems: See Below General: Reports: No Symptoms HEENT: Reports: No Symptoms Pulmonary: Reports: No Symptoms Cardiovascular: Reports: No Symptoms Gastrointestinal: Reports: Abdominal Pain, Flatus, Nausea Genitourinary: Reports: No Symptoms Musculoskeletal: Reports: No Symptoms Skin: Reports: No Symptoms Psychiatric: Reports: No Symptoms Neurological: Reports: No Symptoms Hematologic/Lymphatic: Reports: No Symptoms Immunologic: Reports: No Symptoms Exam - Exam Exam: See Below - Vital Signs Vital Signs: Last Vital Signs Temp 37.1 C 03/06/21 17:01 Pulse 74 03/06/21 17:01 Resp 20 03/06/21 17:01 BP 146/88 H 03/06/21 17:01 Pulse Ox 100 03/06/21 17:01 Weight: 78.517 kg - Exam General: Alert, Oriented, Cooperative HEENT: Conjunctiva Clear Neck: Supple, Trachea Midline Lungs: Clear to Auscultation, Normal Respiratory Effort Cardiovascular: Regular Rate, Regular Rhythm GI/Abdominal Exam: Other (not distended, minimal tenderness in RLQ, no palpable mass) Rectal (Males) Exam: Normal Exam Extremities: Normal Inspection Skin: Warm, Dry Neuro Extensive - Mental Status: Alert, Oriented x3, Normal Mood/Affect Psychiatric: Alert, Normal Affect, Normal Mood - Patient Data Lab Results Last 24 hrs: Laboratory Results - last 24 hr 03/06/21 03/06/21 Range/Units 17:23 17:23 WBC 12.39 H (4.23-9.07) K/mm3 RBC 5.15 (4.63-6.08) M/mm3 Hgb 15.4 (13.7-17.5) gm/dl Hct 44.8 (40.1-51.0) % MCV 87.0 (79.0-92.2) fl MCH 29.9 (25.7-32.2) pg MCHC 34.4 (32.2-35.5) g/dl RDW Std Deviation 40.7 (35.1-43.9) fL Plt Count 292 (163-337) K/mm3 MPV 9.2 L (9.4-12.3) fl Neutrophils % (Manual) 78 H (40-60) % Band Neutrophils % 1 (0-10) % Lymphocytes % (Manual) 16 L (20-40) % Atypical Lymphs % 0 % Monocytes % (Manual) 5 (2-10) % Eosinophils % (Manual) 0 L (0.8-7.0) % Basophils % (Manual) 0 L (0.2-1.2) Platelet Estimate Adequate RBC Morph Comment Normal Sodium 139 (136-145) mEq/L Potassium 3.9 (3.5-5.1) mEq/L Chloride 101 (98-107) mEq/L Carbon Dioxide 28 (21-32) mEq/L Anion Gap 13.9 (5-15) BUN 10 (7-18) mg/dL Creatinine 1.0 (0.7-1.3) mg/dL Est Cr Clr Drug Dosing 68.94 mL/min Estimated GFR (MDRD) > 60 (>60) mL/min BUN/Creatinine Ratio 10.0 L (14-18) Glucose 132 H (83-115) mg/dL Calcium 9.0 (8.5-10.1) mg/dL Total Bilirubin 1.0 (0.2-1.0) mg/dL AST 18 (15-37) U/L ALT 27 (16-63) U/L Alkaline Phosphatase 134 H (46-116) U/L C-Reactive Protein 3.5 H* (<1.0) mg/dL Total Protein 7.2 (6.4-8.2) g/dl Albumin 3.1 L (3.4-5.0) g/dl Globulin 4.1 gm/dL Albumin/Globulin Ratio 0.8 L (1-2) Lipase 66 L (73-393) U/L Result Diagrams: 03/06/21 17:23 03/06/21 17:23 Sepsis Event Note - Evaluation Sepsis Screening Result: No Definite Risk - Focused Exam Vital Signs: Vital Signs Temp Pulse Resp BP Pulse Ox 03/06/21 17:01 37.1 C 74 20 146/88 H 100 Problem List Initiated/Reviewed/Updated: Yes Orders Last 24hrs: Active Orders 24 hr Category Date Time Status Patient Status [ADT] Routine ADT 03/06/21 19:08 Ordered Activity as Tolerated [RC] .Routine Care 03/06/21 19:08 Ordered Antiembolic Devices [RC] PER UNIT ROUTINE Care 03/06/21 19:09 Ordered Notify Provider Consults [RC] ASDIRECTED Care 03/06/21 19:07 Active Oxygen Therapy [RC] PRN Care 03/06/21 19:08 Ordered RT Incentive Spirometry [RC] Q1HWA Care 03/06/21 19:08 Ordered Vital Signs [RC] Q8H Care 03/06/21 19:08 Ordered Consult to Physician [CONS] Stat Cons 03/06/21 19:06 Active Clear Liquid Diet [DIET] Diet 03/06/21 Breakfast Ordered BASIC METABOLIC PANEL,BMP [CHEM] AM Lab 03/07/21 05:11 Ordered CBC WITH AUTO DIFF [HEME] AM Lab 03/07/21 05:11 Ordered CORONAVIRUS COVID-19 MELIZA [MOLEC] Stat Lab 03/06/21 19:03 Ordered UA W/MICROSCOPIC [URIN] Stat Lab 03/06/21 17:10 Ordered Acetaminophen [TylenoL] Med 03/06/21 19:15 Ordered 975 mg PO Q8H Aspirin [Halfprin] Med 03/07/21 09:00 Ordered 81 mg PO DAILY Cetirizine Med 03/07/21 09:00 Ordered 10 mg PO DAILY FLUoxetine [PROzac] Med 03/06/21 21:00 Ordered 20 mg PO BID Hydrocortisone Sod Succinate [Solu-CORTEF] Med 03/06/21 19:15 Ordered 100 mg IVPUSH Q6H Lactated Ringers [Ringers, Lactated] 1,000 ml Med 03/06/21 19:15 Ordered IV ASDIRECTED Levothyroxine [Synthroid] Med 03/07/21 09:00 Ordered 50 mcg PO DAILY Morphine Med 03/06/21 19:08 Ordered 1 mg IVPUSH Q4H PRN OLANZapine [ZyPREXA] Med 03/06/21 21:00 Ordered 5 mg PO BEDTIME Rosuvastatin [Crestor] Med 03/07/21 09:00 Ordered 10 mg PO DAILY Sodium Chloride 0.9% [Normal Saline] 1,000 ml Med 03/06/21 17:15 Active IV ASDIRECTED Sodium Chloride 0.9% [Saline Flush] Med 03/06/21 18:15 Active 10 ml FLUSH ASDIRECTED levoFLOXacin [Levaquin] Med 03/06/21 19:15 Ordered 750 mg PO Q24H metroNIDAZOLE [Flagyl] Med 03/06/21 19:15 Ordered 500 mg PO Q8H Sequential Compression Device [OM.PC] Routine Oth 03/06/21 19:08 Ordered Resuscitation Status Routine Resus Stat 03/06/21 19:08 Ordered Medication Orders Acetaminophen (Acetaminophen 325 Mg Tab) 975 mg PO Q8H FLO Aspirin (Aspirin 81 Mg Tab.Ec) 81 mg PO DAILY FLO Fluoxetine HCl (Fluoxetine 20 Mg Cap) 20 mg PO BID [facility] Hydrocortisone Sodium Succinate (Hydrocortisone Sodium Succinate 100 Mg/2 Ml Sdv) 100 mg IVPUSH Q6H FLO Sodium Chloride (Normal Saline) 1,000 mls @ 999 mls/hr IV ASDIRECTED FLO Last Admin: 03/06/21 17:31 Dose: 999 mls/hr Documented by: HERMMIC Lactated Ringer's (Ringers, Lactated) 1,000 mls @ 50 mls/hr IV ASDIRECTED FLO Levofloxacin (Levofloxacin 750 Mg Tab) 750 mg PO Q24H FLO Levothyroxine Sodium (Levothyroxine 50 Mcg Tab) 50 mcg PO DAILY FLO Metronidazole (Metronidazole 500 Mg Tab) 500 mg PO Q8H FLO Morphine Sulfate (Morphine 2 Mg/Ml Syringe) 1 mg IVPUSH Q4H PRN PRN Reason: Pain (severe 7-10) Non-Formulary Medication (Cetirizine) 10 mg PO DAILY FLO Olanzapine (Olanzapine 5 Mg Tab) 5 mg PO BEDTIME FLO Rosuvastatin Calcium (Rosuvastatin 10 Mg Tab) 10 mg PO DAILY FLO Sodium Chloride (Sodium Chloride 0.9% 10 Ml Syringe) 10 ml FLUSH ASDIRECTED [facility] Last Admin: 03/06/21 18:46 Dose: 10 ml Documented by: ELIZABET Assessment/Plan Comment:: Apparent initial presentation with evidence of Crohn disease, steadily worsening symptoms. Plan on admission and start treatment with IV hydrocortisone and oral antibiotics (levofloxacin and metronidazole) - Mortality Measure Prognosis:: Good
[2021-03-06] MEDS: OLANZapine 5 MG Tab PO SCH (21:03)
[2021-03-06] MEDS: metroNIDAZOLE 500 MG Tab PO SCH (21:03)
[2021-03-06] MEDS: Levofloxacin 750 MG Tab PO SCH (21:04)
[2021-03-06] MEDS: Hydrocortisone Sodium Succinate 100 MG/2 ML SDV IVPUSH SCH (21:04)
[2021-03-06] MEDS: Acetaminophen 325 MG Tab PO SCH (21:04)
[2021-03-06] MEDS: FLUoxetine 20 MG Cap PO SCH (22:10)
[2021-03-07] MEDS: metroNIDAZOLE 500 MG Tab PO SCH ×3 (02:44→18:40)
[2021-03-07] MEDS: Hydrocortisone Sodium Succinate 100 MG/2 ML SDV IVPUSH SCH ×4 (02:44→18:40)
[2021-03-07] MEDS: Acetaminophen 325 MG Tab PO SCH ×3 (02:45→18:40)
--- NOTE | 2021-03-07 07:46 | PCM.SN.2 ---
- Free Text/Narrative Note: Admitted 03/06/21, day after diagnostic colonoscopy for suspected Crohn ileitis, due to worsening abdominal pain. Started on hydrocortisone and levofloxacin/metronidazole for presumed acute Crohn's flare. S: feeling much better. Had a bowel movement. No prn pain medication utilized. O: AF-VSS WBC down to 7 Awake and alert, no distress breathing comfortably on room air Abd soft, nontender, tympanic to percussion, no palpable mass A: Feeling much better after starting treatment for presumed Crohn's. Ileal biopsy results pending. P: -advance from clears to regular diet -alise IV fluids -continue IV hydrocortisone 100 mg q6h, levofloxacin 750 mg qd, 500 mg metronidazole q8h -reassess this afternoon, plan to convert to oral regimen for steroids soon and anticipate discharge to home as early as tomorrow morning
[2021-03-07] MEDS: Loratadine 10 MG Tab PO SCH (09:05)
[2021-03-07] MEDS: Rosuvastatin 10 MG Tab PO SCH (09:05)
[2021-03-07] MEDS: Aspirin 81 MG Tab.EC PO SCH (09:05)
[2021-03-07] MEDS: Levothyroxine 50 MCG Tab PO SCH (09:06)
[2021-03-07] MEDS: FLUoxetine 20 MG Cap PO SCH ×2 (09:06→21:02)
[2021-03-07] MEDS: Levofloxacin 750 MG Tab PO SCH (18:40)
[2021-03-07] MEDS: OLANZapine 5 MG Tab PO SCH (21:02)
[2021-03-08] MEDS: Hydrocortisone Sodium Succinate 100 MG/2 ML SDV IVPUSH SCH ×2 (02:22→06:15)
[2021-03-08] MEDS: metroNIDAZOLE 500 MG Tab PO SCH (02:22)
[2021-03-08] MEDS: Acetaminophen 325 MG Tab PO SCH (02:23)
--- NOTE | 2021-03-08 07:45 | PCM.DCSUM1 ---
Discharge Summary - Hospital Course Free Text/Narrative:: Admitted after diagnostic colonoscopy for suspected Crohn's ileitis, with worsening abdominal pain and leukocytosis. CT scan showed no evidence of perforation or abscess. The patient rapidly improved after starting empiric treatment including 100 mg hydrocortisone q6h and levofloxacin and metronidazole. He was deemed fit for discharge on hospital day 3 with plan for prednisone taper, continued antibiotics for 10 days, and urgent referral to gastroenterology for management of Crohn disease. Diagnosis: Stroke: No - Discharge Data Discharge Date: 03/08/21 Discharge Disposition: Home, Self-Care 01 Condition: Good - Referral to Home Health Primary Care Physician: Corrie Griggs NP - Patient Summary/Data Consults: Consultations 03/06/21 19:06 Consult to Physician [CONS] Stat - Patient Instructions Diet: Usual Diet as Tolerated - Discharge Plan *PRESCRIPTION DRUG MONITORING PROGRAM REVIEWED*: Not Applicable *COPY OF PRESCRIPTION DRUG MONITORING REPORT IN PATIENT GABY: Not Applicable Prescriptions/Med Rec: Levofloxacin 750 mg PO DAILY #10 tablet metroNIDAZOLE [Metronidazole] 500 mg PO Q8H #30 tablet predniSONE [Prednisone] 40 mg PO DAILY #14 tablet Home Medications: Home Meds Ascorbic Acid [Vitamin C] 1,000 mg PO TID 09/19/19 [History] Aspirin [Low Dose Aspirin EC] 81 mg PO DAILY 09/19/19 [History] Cetirizine [ZyrTEC] 10 mg PO DAILY 09/19/19 [History] FLUoxetine HCl [Prozac] 20 mg PO BID 09/19/19 [History] Fish Oil/Paragon-3 Fatty Acids [Fish Oil 1,000 MG] 1 gm PO DAILY 09/19/19 [Histo ry] Levothyroxine [Synthroid] 50 mcg PO DAILY 09/19/19 [History] Multivitamin [Daily Multiple Vitamin] 1 tab PO DAILY 09/19/19 [History] OLANZapine [Olanzapine] 5 mg PO BEDTIME 09/19/19 [History] Rosuvastatin Calcium 10 mg PO DAILY 09/19/19 [History] Triamcinolone Acetonide [Nasacort AQ [place]] 1 dose NASBOTH DAILY PRN 09/19/19 [History] Levofloxacin 750 mg PO DAILY #10 tablet 03/08/21 [Rx] metroNIDAZOLE [Metronidazole] 500 mg PO Q8H #30 tablet 03/08/21 [Rx] predniSONE [Prednisone] 40 mg PO DAILY #14 tablet 03/08/21 [Rx] Forms: ED Department Discharge Referrals: Corrie Griggs CERTIFIED [employer] [Primary Care Provider] - - Discharge Summary/Plan Comment DC Time >30 min.: No Discharge Summary/Plan Comment: Needs to see GI at [facility] in [place] - Patient Data Vitals - Most Recent: Last Vital Signs Temp 36.4 C 03/08/21 02:21 Pulse 57 L 03/08/21 02:21 Resp 13 03/08/21 02:21 BP 110/56 L 03/08/21 02:21 Pulse Ox 96 03/08/21 02:21 Weight - Most Recent: 77.7 kg I&O - Last 24 hours: Intake & Output 03/07/21 03/08/21 03/08/21 22:59 06:59 14:59 Intake Total 1100 350 Output Total 600 500 Balance 500 -150 Med Orders - Current: Current Medications Acetaminophen (Acetaminophen 325 Mg Tab) 975 mg PO Q8H [facility] Last Admin: 03/08/21 02:23 Dose: Not Given Documented by: Aspirin (Aspirin 81 Mg Tab.Ec) 81 mg PO DAILY [facility] Last Admin: 03/07/21 09:05 Dose: 81 mg Documented by: Fluoxetine HCl (Fluoxetine 20 Mg Cap) 20 mg PO BID [facility] Last Admin: 03/07/21 21:02 Dose: 20 mg Documented by: Hydrocortisone Sodium Succinate (Hydrocortisone Sodium Succinate 100 Mg/2 Ml Sdv) 100 mg IVPUSH Q6H [facility] Last Admin: 03/08/21 06:15 Dose: 100 mg Documented by: Levofloxacin (Levofloxacin 750 Mg Tab) 750 mg PO Q24H [facility] Last Admin: 03/07/21 18:40 Dose: 750 mg Documented by: Levothyroxine Sodium (Levothyroxine 50 Mcg Tab) 50 mcg PO DAILY [facility] Last Admin: 03/07/21 09:06 Dose: 50 mcg Documented by: Loratadine (Loratadine 10 Mg Tab) 10 mg PO DAILY [facility] Last Admin: 03/07/21 09:05 Dose: 10 mg Documented by: Metronidazole (Metronidazole 500 Mg Tab) 500 mg PO Q8H [facility] Last Admin: 03/08/21 02:22 Dose: 500 mg Documented by: Morphine Sulfate (Morphine 2 Mg/Ml Syringe) 1 mg IVPUSH Q4H PRN PRN Reason: Pain (severe 7-10) Olanzapine (Olanzapine 5 Mg Tab) 5 mg PO BEDTIME [facility] Last Admin: 03/07/21 21:02 Dose: 5 mg Documented by: Rosuvastatin Calcium (Rosuvastatin 10 Mg Tab) 10 mg PO DAILY [facility] Last Admin: 03/07/21 09:05 Dose: 10 mg Documented by: Sodium Chloride (Sodium Chloride 0.9% 10 Ml Syringe) 10 ml FLUSH ASDIRECTED [facility] Last Admin: 03/06/21 18:46 Dose: 10 ml Documented by: Discontinued Medications Hydromorphone HCl (Hydromorphone 1 Mg/Ml Syringe) 1 mg IVPUSH ONETIME STA Stop: 03/06/21 17:11 Last Admin: 03/06/21 17:30 Dose: 1 mg Documented by: Sodium Chloride (Normal Saline) 1,000 mls @ 999 mls/hr IV ASDIRECTED [facility] Last Admin: 03/06/21 17:31 Dose: 999 mls/hr Documented by: Lactated Ringer's (Ringers, Lactated) 1,000 mls @ 50 mls/hr IV ASDIRECTED [facility] Last Admin: 03/06/21 21:56 Dose: 50 mls/hr Documented by: Iopamidol (Iopamidol 612 Mg/Ml 50 Ml Sdv) 50 ml IVPUSH ONETIME ONE Stop: 03/06/21 18:15 Last Admin: 03/06/21 18:46 Dose: 50 ml Documented by: Iopamidol (Iopamidol 612 Mg/Ml 100 Ml Bottle) 100 ml IVPUSH ONETIME ONE Stop: 03/06/21 18:15 Last Admin: 03/06/21 18:46 Dose: 100 ml Documented by: Ondansetron HCl (Ondansetron 4 Mg/2 Ml Sdv) 4 mg IVPUSH ONETIME ONE Stop: 03/06/21 17:11 Last Admin: 03/06/21 17:30 Dose: 4 mg Documented by:
[2021-03-08] MEDS: FLUoxetine 20 MG Cap PO SCH (08:14)
[2021-03-08] MEDS: Rosuvastatin 10 MG Tab PO SCH (08:14)
[2021-03-08] MEDS: Aspirin 81 MG Tab.EC PO SCH (08:14)
[2021-03-08] MEDS: Loratadine 10 MG Tab PO SCH (08:14)
[2021-03-08] MEDS: Levothyroxine 50 MCG Tab PO SCH (08:15)
== END 2021-03-08 09:52 | disposition home or self-care (01) | DRG 387 ==
LOC: JD.ED 16:51 → JD.MS 19:59
PROVIDERS: ADMIT Surgery; ATTEND Surgery
DX: K50.00 Crohn's disease of small intestine without complications (principal); R10.33 Periumbilical pain; Z98.890 Other specified postprocedural states; J30.9 Allergic rhinitis, unspecified; E78.00 Pure hypercholesterolemia, unspecified; K21.9 Gastro-esophageal reflux disease without esophagitis; M19.90 Unspecified osteoarthritis, unspecified site; F43.10 Post-traumatic stress disorder, unspecified; F32.9 Major depressive disorder, single episode, unspecified; Z90.49 Acquired absence of other specified parts of digestive tract; E03.9 Hypothyroidism, unspecified; Z85.46 Personal history of malignant neoplasm of prostate; Z87.442 Personal history of urinary calculi; Z79.82 Long term (current) use of aspirin; Z79.890 Hormone replacement therapy; Z87.891 Personal history of nicotine dependence; Z79.899 Other long term (current) drug therapy; Z20.822 Contact with and (suspected) exposure to COVID-19
CPT/HCPCS: 36415; 74177; 80053; 81001; 83690; 85007; 85027; 86140; 96374; 96375; 99285; J1170; J2405; J7030; Q9967 ×2; U0002; 80048; 85025; 99284; A9270-GY; J1720; J7120